=== PATIENT | female | born 1970 | race Caucasian/White ===

== ENCOUNTER 2017-02-11 20:35 | Emergency (ER) | payer OTHER ==
[~2017-02-11] VITALS: Ht 154.9 cm; Wt 77.1 kg
--- NOTE | 2017-02-11 21:19 | NUR ---
Pt ambulatory to bed 5a, dr arora at bedside for exam.
--- NOTE | 2017-02-11 21:20 | NUR ---
Pt dc;ed home w/ aci, pt has script for amox and cough syrup.
[2017-02-11 21:21] VITALS: BP 130/74
== END 2017-02-11 21:22 | disposition home or self-care (01) ==
LOC: ER 20:35
DX: J40 Bronchitis, not specified as acute or chronic (principal)
CPT/HCPCS: A4663